=== PATIENT | male | born 1965 | race Caucasian/White ===

== ENCOUNTER 2020-05-20 19:57 | Emergency (ER) | payer SELFPAY ==
[2020-05-20 19:57] VITALS: BP 155/88; PULSE 62; RESP 14; TEMP 36.9; O2SAT 84; BMI 23.8
--- NOTE | 2020-05-20 20:02 | ED.RN ---
NO OLD EKGS IN MUSE
--- NOTE | 2020-05-20 20:06 | EKG12_ITS ---
Test Reason : CP Blood Pressure : / mmHG Vent. Rate : 064 BPM Atrial Rate : 064 BPM P-R Int : 138 ms QRS Dur : 112 ms QT Int : 450 ms P-R-T Axes : 036 034 053 degrees QTc Int : 464 ms Normal sinus rhythm Minimal voltage criteria for LVH, may be normal variant Borderline ECG Confirmed by MARK ANTHONY COOK, GILLES ([id number]), associate editor RONALDO LANDA ([id number]) on 05/28/2020 11:19:51 A M Referred By: DAVID Confirmed By:EDWAR HOPSON MD
--- NOTE | 2020-05-20 20:06 | ED.DCSUM_ITS ---
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 Per EMS he was found clutching his chest and diaphoretic and then had an episode of syncope. When he woke up he was confused for EMS. Initially he was not answering questions appropriately and he first arrived and nursing staff came to get me out of concern for stroke however at this point he is alert and oriented exception of not knowing the year. He was able to tell me his age and his full name. He states that he has a headache but is not having any pain anywhere else. He has no blurred vision. He does not feel dizzy. He states he has no medical problems and takes no medications but does not see a regular physician. He does admit to drinking a lot of energy drinks. He does not admit to drugs or alcohol abuse. Past Medical History - Allergies and Home Meds Allergies/Adverse Reactions: Allergies No Known Allergies Allergy (Verified 05/20/20 20:03) Primary Care Physician: Care Physician,No Primary [Primary Care Provider] - Prior records reviewed: Yes Past Medical History: - - Reported Surgical History: noncontributory Lives: Alone Smoking Status: Current every day smoker Alcohol: None Drugs: None Review of Systems Eyes: Denies: Visual changes - bilaterally, Diplopia ENT: Reports: Bilateral ear pain Cardiovascular: Denies: Chest pain, Palpitations Respiratory: Denies: Dyspnea, Cough, Dyspnea on exertion Gastrointestinal: Denies: Abdominal pain, Nausea, Vomiting, Diarrhea, Melena, Hematochezia Genitourinary: Denies: Dysuria, Hematuria, Frequency Musculoskeletal: Denies: Back pain, Extremity Pain Skin: Denies: Rash, Wounds Neurological: Reports: Headache Psych: Denies: Depression, Anxiety Physical Exam Vital Signs/Narrative: Vital Signs Temp Pulse Resp BP Pulse Ox 05/20/20 19:57 98.4 F 62 14 155/88 H 84 General: Well nourished, Well developed, No Acute Distress Head: Normocephalic, Atraumatic Eyes: Perrl, EOMI ENT: Moist mucous membranes Cardiovascular: Regular rate, Regular rhythm Respiratory: No distress, CTA bilaterally Abdomen: Soft, Nontender, Nondistended Back: Nontender, Normal Inspection Extremities: Nontender, No edema Skin: Normal color, No rash. Negative for: Cyanosis, Jaundice Neurological: Alert - Oriented to person and place, Normal Sensation, Confused. Negative for: Left side facial droop, Right side facial droop Psychological: Normal affect Diagnostic/Tx/Re-eval Clinical Impression(s) from Imaging Studies Chest CTA 05/20/20 20:09 IMPRESSION: 1. No evidence of pulmonary embolus. 2. No aortic dissection or aneurysm. 3. No acute cardiopulmonary disease. Electronically Signed: Lavelle Saravia DO at 21:28 EDT Tel [phone], Service support , Head/Neck CTA 05/20/20 20:09 IMPRESSION: 1. Question small aneurysm off the bifurcation of the right anterior and middle cerebral arteries. There is no active extravasation noted. 2. Otherwise normal tejon of Amor. 3. Minimal atherosclerotic changes at the left carotid bifurcation without stenosis. Electronically Signed: Lavelle Saravia DO at 21:18 EDT Tel [phone], Service support , ADDENDUM: 05/20/202126 IMPRESSION: 1. Question small aneurysm off the bifurcation of the right anterior and middle cerebral arteries. There is no active extravasation noted. 2. Otherwise normal tejon of Amor. 3. Minimal atherosclerotic changes at the left carotid bifurcation without stenosis. N.B. : The above information has been verbally conveyed by Lavelle Saravia DO to Dr. Layo Isidro DO, DO, on 05/20/2020 21:21:00 (ET). Electronically Signed: Lavelle Saravia DO at 21:18 EDT Tel [phone], Service support , Brain CT 05/20/20 20:15 IMPRESSION: Diffuse subarachnoid hemorrhage with mild sulcal effacement. Question ruptured aneurysm. Electronically Signed: Lavelle Saravia DO at 20:45 EDT Tel [phone], Service support , ADDENDUM: 05/20/202055 IMPRESSION: Diffuse subarachnoid hemorrhage with mild sulcal effacement. Question ruptured aneurysm. N.B. : The above information has been verbally conveyed by Lavelle Saravia DO to Dr. Layo Isidro DO, DO, on 05/20/2020 20:49:29 (ET). Electronically Signed: Lavelle Saravia DO at 20:45 EDT Tel [phone], Service support , Chest X-Ray 05/20/20 21:10 IMPRESSION: No acute cardiopulmonary disease. Electronically Signed: Lavelle Saravia DO at 21:28 EDT Tel [phone], Service support , Laboratory Data 05/20/20 05/20/20 05/20/20 20:03 20:03 20:13 WBC 10.6 RBC 4.36 L Hgb 12.6 L Hct 39.7 L MCV 91.1 MCH 28.9 MCHC 31.7 L RDW Std Deviation 47.3 H RDW Coeff of Dodie 14.2 Plt Count 237 MPV 12.5 H Immature Gran % (Auto) 0.800 Neut % (Auto) 52.9 Lymph % (Auto) 30.7 Price % (Auto) 7.6 Eos % (Auto) 7.4 H Baso % (Auto) 0.6 Absolute Neuts (auto) 5.6 Absolute Lymphs (auto) 3.24 Nucleated RBC % 0 Sodium 144 Potassium 3.1 L Chloride 110 H Carbon Dioxide 29.0 Anion Gap 5 BUN 11 Creatinine 0.94 Estim Creat Clear Calc 84.89 Est GFR (MDRD) Af Amer 107 Est GFR (MDRD) Non-Af 88 BUN/Creatinine Ratio 11.7 Glucose 99 Calcium 8.7 Troponin I < 0.015 POC Glucose 90 - Medical Decision Making Presents with headache and altered mental status. I had concern for subarachnoid hemorrhage immediately. His NIH is 0. He was taken to CT where they did identify a subarachnoid hemorrhage. Lab work was normal. Patient did complain of headache so he was given Reglan and Benadryl which did moderately help his head. His blood pressure was slightly elevated in the high 150s systolic on arrival but did go up to the 170s. I did give him 2 doses of hydralazine to get his blood pressure down. His lab work was within normal limits with exception of mildly low potassium at 3.1. He was given Keppra 1 g IV and put on seizure precautions. Patient remained alert and awake but did have some perseveration at times. He is protecting his airway. Initially I called [facility] for transfer but they declined stating that they did not have interventional capability at this time. I then called [facility] who was amenable to keeping the patient. They did send there air transport unit from [facility] to pick the patient up. He remained stable prior to transfer. Impression: 1. Subarachnoid hemorrhage 2. Headache 3. 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 - Main Referrals: Care Physician,No Primary [Primary Care Provider] -
[2020-05-20 20:09] VITALS: O2SAT 100
--- NOTE | 2020-05-20 20:09 | CT_ITS ---
STUDY: CTA CHEST REASON FOR EXAM: Male, 54 years old. Diaphoresis. Collapse. Slurred speech. Acute plain brain bleeding. RADIATION DOSAGE (If Supplied By Facility): CTDIvol = ( 22.57 ) mGy, DLP = ( 1973.94 ) mGycm TECHNIQUE: The examination was performed with the intravenous administration of IV 100mL Isovue-370. Post-processing of the angiographic images was performed, with multiplanar reformation and 3D reconstruction. Individualized dose optimization techniques were used for this CT. COMPARISON: Chest, 05/20/2020. FINDINGS: Normal enhancement of the main pulmonary artery and right and left pulmonary arteries. Normal enhancement of the bilateral peripheral pulmonary arteries. There is no demonstrated pulmonary embolism. Normal thoracic aorta and visualized great vessels. There is no demonstrated aortic dissection. Normal heart and pericardium. Normal mediastinum. Normal hilar regions. Normal visualized trachea and bronchi. The lungs are well expanded. Normal pulmonary parenchyma. Normal pleura. Normal chest wall structures. There are degenerative changes of thoracic spine. Normal visualized upper abdomen. CT/CTA Chest W/WO Contrast IMPRESSION: 1. No evidence of pulmonary embolus. 2. No aortic dissection or aneurysm. 3. No acute cardiopulmonary disease. Electronically Signed: Lavelle Saravia DO at 21:28 EDT Tel [phone], Service support ,
--- NOTE | 2020-05-20 20:09 | CT_ITS ---
We are attempting to reach an attending provider to discuss findings. An addendum with communication details will be sent when the communication is complete. STUDY: CTA HEAD AND NECK WITH CONTRAST REASON FOR EXAM: Male, 54 years old. Collapsed. Slurred speech. Acute intracranial hemorrhage. RADIATION DOSAGE (If Supplied By Facility): CTDIvol = ( 22.57 ) mGy, DLP = ( 1973.94 ) mGycm TECHNIQUE: CT angiography was performed with a multi-detector CT scanner. Data acquisition was obtained from the skull base through the vertex following intravenous administration of IV 100mL Isovue-370. MIP images were reconstructed from the axial data set. Post-processing of the angiographic images was performed, with multiplanar reformation and 3D reconstruction. Individualized dose optimization techniques were used for this CT. COMPARISON: CT of the head, 05/20/2020 FINDINGS: Normal bilateral petrous carotid arteries. Normal right cavernous carotid artery with a normal supraclinoid bifurcation. Normal left cavernous carotid artery with a normal supraclinoid bifurcation. 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 This is best seen on image 196 of series 3 and on image 45 of series 6007. Normal right A1 segments of the anterior cerebral artery. Normal left A1 segments of the anterior cerebral artery. Normal intact anterior communicating artery (ACOM). Normal bilateral A2 segments of the anterior cerebral arteries. Normal right M1 and M2 segments of the middle cerebral arteries, with a normal M1 bifurcation. Normal left M1 and M2 segments of the middle cerebral arteries, with a normal M1 bifurcation. Normal right posterior communicating artery (PCOM). Normal left posterior communicating artery (PCOM). Normal bilateral vertebral arteries. Normal basilar artery with a normal basilar bifurcation. The visualized bilateral superior cerebellar (SCA) arteries are normal. Normal bilateral P1, P2 and visualized P3 segments of the posterior cerebral arteries. There is no demonstrated aneurysm of the pokagon of Amor. There is no demonstrated abnormality of the visualized brain. AORTIC ARCH: Normal visualized aortic arch. Normal origins of the brachiocephalic, left common carotid, and left subclavian arteries. RIGHT CAROTID ARTERIES: Normal right common carotid artery (CCA). Normal right common carotid bulb. Normal origin of the right internal carotid (ICA) artery without a hemodynamically significant stenosis. Normal visualized cervical portion of the right internal carotid artery. Normal origin of the right external carotid artery (ECA). LEFT CAROTID ARTERIES: Normal left common carotid artery (CCA). Minimal calcific plaque in the carotid bulb without stenosis. Normal origin of the left internal carotid (ICA) artery without a hemodynamically significant stenosis. Normal visualized cervical portion of the left internal carotid artery. Normal origin of the left external carotid artery (ECA). VERTEBRAL ARTERIES: Normal bilateral vertebral arteries. CT/CTA Head AND Neck W/ Contrast IMPRESSION: 1. Question small aneurysm off the bifurcation of the right anterior and middle cerebral arteries. There is no active extravasation noted. 2. Otherwise normal pok[place] of Amor. 3. Minimal atherosclerotic changes at the left carotid bifurcation without stenosis. Electronically Signed: Lavelle Saravia DO at 21:18 EDT Tel [phone], Service support ,
[2020-05-20 20:11] VITALS: BMI 23.8
--- NOTE | 2020-05-20 20:15 | CT_ITS ---
We are attempting to reach an attending provider to discuss findings. An addendum with communication details will be sent when the communication is complete. STUDY: CT BRAIN WITHOUT CONTRAST REASON FOR EXAM: Male, 54 years old. Slurred speech. Diaphoretic. RADIATION DOSAGE (If Supplied By Facility): CTDIvol = ( 44.99 ) mGy, DLP = ( 762.31 ) mGycm TECHNIQUE: Transaxial CT imaging of the brain was performed without administration of intravenous contrast material. Individualized dose optimization techniques were used for this CT. COMPARISON: No relevant priors. FINDINGS: Impression Normal soft tissue structures. Normal calvarium. There is high density material along the skull base extending out along the tentorium and sylvian fissures as well as the anterior falx. The findings suggest diffuse some hemorrhage. Minimal subarachnoid hemorrhage is also seen about the right parietal region. No distinct parenchymal hemorrhage. There is no subdural bleed. Normal size ventricles for the patient''s age. There is without midline shift or mass effect. Normal white matter tracts of the cerebral hemispheres. Normal basal ganglia and thalami. Normal brainstem. Normal cerebellum. There is no intracranial hemorrhage. There are no findings of an acute ischemic infarction. Normal visualized paranasal sinuses. CT/Brain/Head without Contrast IMPRESSION: Diffuse subarachnoid hemorrhage with mild sulcal effacement. Question ruptured aneurysm. Electronically Signed: Lavelle Saravia DO at 20:45 EDT Tel [phone], Service support ,
[2020-05-20 20:16] LABS: Bedside Glucose 90 mg/dL (70-110)
[2020-05-20 20:20] LABS: Absolute Lymphocyte Count 3.24 X10^3/uL (0.83-4.51); Absolute Neutrophil Count 5.6 X10^3/uL (2.0-7.7); Basophil# 0.06 X10^3/uL; Basophil% 0.6 % (0-1); Eosinophil# 0.78 X10^3/uL; Eosinophils% 7.4 % (0-5); Hematocrit 39.7 % (40-54); Hemoglobin 12.6 g/dL (13.0-16.5); Lymphocyte # 3.24 X10^3/ul (4.0); Lymphocyte % 30.7 % (19-41); Mean Corp Hgb Conc 31.7 g/dL (32-36); Mean Corpuscular Hgb 28.9 pg (27.0-32.0); Mean Corpuscular Volume 91.1 fL (80-94); Mean Platelet Vol. 12.5 fl (6.2-12.0); Monocyte% 7.6 % (0-10); NRBC Flagged by Analyzer 0 % (0-5); Neutrophil % 52.9 % (47-70); Platelet Count 237 K/mm3 (150-450); RBC Distribution Width CV 14.2 % (11.6-14.6); RBC Distribution Width SD 47.3 fl (35.1-43.9); Red Blood Count 4.36 M/mm3 (4.6-6.2); White Blood Count 10.6 K/mm3 (4.4-11.0)
[2020-05-20 20:39] LABS: Anion Gap 5 (5-15); BUN 11 mg/dL (7-18); BUN/Creat Ratio 11.7 RATIO (10-20); Calcium,Total 8.7 mg/dL (8.5-10.1); Chloride 110 mmol/L (98-107); Creatinine, Serum 0.94 mg/dL (0.70-1.30); EST Glomerular Filtration Rate 88 mL/min (>60); Est Glom Filt Rate - Afr Amer 107 mL/min (>60); Estimated Creatinine Clearance 84.89 ml/min; Glucose 99 mg/dL (74-106); Potassium 3.1 mmol/L (3.5-5.1); Sodium Level 144 mmol/L (136-145)
[2020-05-20] MEDS: 0.9% Normal Saline 1,000 ML 1000 ML IV (20:39)
[2020-05-20] MEDS: DiphenhydrAMINE 50 MG/ML Syringe 25 MG IV (20:42)
[2020-05-20] MEDS: Metoclopramide 10 MG/2 ML Vial IV (20:42)
[2020-05-20] MEDS: levETIRAcetam IV 1,000 MG/100 ML BAG 400 MG IV (20:54)
[2020-05-20 20:57] VITALS: BP 159/97; PULSE 61; RESP 11; O2SAT 100
--- NOTE | 2020-05-20 21:02 | ED.RN ---
Dolores from [facility] transfer line called stating they are declining patient and referring to [facility] main due to their neuro interventional lab being down. Family aware and agree to new plan. aware. [facility] transfer center called.
[2020-05-20 21:10] VITALS: BP 173/88; PULSE 62; RESP 10; O2SAT 100
--- NOTE | 2020-05-20 21:10 | RAD_ITS ---
STUDY: X-RAY CHEST REASON FOR EXAM: Male, 54 years old. Headache. TECHNIQUE: Single AP portable view of the chest. COMPARISON: CTA of the chest, 05/20/2020. FINDINGS: The lungs are clear and expanded. There is no demonstrated pleural abnormality. Normal size heart. Normal mediastinum and nathan. Normal visualized pulmonary arteries. Normal visualized aortic arch and descending thoracic aorta. Normal visualized thoracic spine. Normal visualized ribs, clavicles, and shoulders. There is no demonstrated abnormality of the visualized soft tissue structures of the upper abdomen. RAD/Chest 1 View (Portable) IMPRESSION: No acute cardiopulmonary disease. Electronically Signed: Lavelle Saravia DO at 21:28 EDT Tel [phone], Service support ,
[2020-05-20] MEDS: hydrALAZINE 20 MG/ML Vial 10 MG IV (21:24)
--- NOTE | 2020-05-20 21:30 | ED.RN ---
PT ASSIGNED TO [facility] H-22 BED 6, CALL REPORT TO [phone]
[2020-05-20 21:37] VITALS: BP 167/85; PULSE 59; RESP 11; O2SAT 100
[2020-05-20 22:01] VITALS: BP 167/85; PULSE 60; RESP 17; TEMP 36.9; O2SAT 100
== END 2020-05-20 22:04 | disposition short-term general hospital (02) ==
PROVIDERS: Emergency Provider Student in an Organized Health Care Education/Training Program
DX: I60.9 Nontraumatic subarachnoid hemorrhage, unspecified (principal); R51 Headache; I10 Essential (primary) hypertension; F17.200 Nicotine dependence, unspecified, uncomplicated
CPT/HCPCS: 70450; 70496; 70498; 71045; 71275; 80048; 82962; 84484; 85025; 93005; 96365; 96375; 99285; J7030; Q9967